=== PATIENT | female | born 1930 | race Caucasian/White ===

== ENCOUNTER 2016-07-13 13:20 | Outpatient (CLI) | payer MEDICARE ==
[2016-07-13 14:03] LABS: ALT (SGPT) 19 U/L (0-55); AST (SGOT) 18 U/L (5-34); Alkaline Phosphatase 58 U/L (40-150); Anion Gap 15 mmol/L (10-20); BUN (Urea Nitrogen) 10 mg/dL (9.8-20.1); Bilirubin, Direct 0.3 mg/dL (0.1-0.3); Bilirubin, Total 0.7 mg/dL (0.2-1.2); Calc. Creatinine Clearance 0 mL/min (70-130); Calcium 9.5 mg/dL (7.8-10.44); Carbon Dioxide 30 mmol/L (23-31); Chloride 97 mmol/L (98-107); Estimated GFR-MDRD 73; LDL Cholesterol, Calculated 75 mg/dL; Protein, Total 6.8 g/dL (5.8-8.1)
[2016-07-13 14:33] LABS: Hemoglobin A1c 5.9 % (4.0-6.0)
[2016-07-13 14:34] LABS: #Basophils 0.1 thou/uL (0.0-0.2); #Eosinphils 0.4 thou/uL (0.0-0.7); #Lymphocytes 1.8 thou/uL (1.20-3.40); #Monocytes 0.7 thou/uL (0.11-0.59); #Neutrophils 3.9 thou/uL (1.40-6.50); %Basophils 1.4 % (0.0-1.0); %Eosinophils 5.9 % (0.0-10.0); %Lymphocytes 26.3 % (21.0-51.0); %Monocytes 9.6 % (0.0-10.0); Hematocrit 37.1 % (36.0-47.0); Mean Platelet Volume 5.5 fL (7.4-10.4); Red Blood Cell (RBC) Count 4.44 mill/uL (4.20-5.40); White Blood Cell (WBC) Count 6.8 thou/uL (4.8-10.8)
== END 2016-07-13 13:21 | disposition home or self-care (01) ==
LOC: NAV LABSP 13:20
PROVIDERS: ATTEND Family Medicine
DX: E11.65 Type 2 diabetes mellitus with hyperglycemia (principal); I10 Essential (primary) hypertension; H49.00 Third [oculomotor] nerve palsy, unspecified eye; Z79.899 Other long term (current) drug therapy
CPT/HCPCS: 36415; 80048; 80061; 80076; 83036; 84443; 85025

== ENCOUNTER 2016-11-11 08:35 | Outpatient (CLI) | payer MEDICARE ==
[2016-11-11 12:55] LABS: #Basophils 0.1 thou/uL (0.0-0.2); #Eosinphils 0.3 thou/uL (0.0-0.7); #Lymphocytes 1.9 thou/uL (1.20-3.40); #Monocytes 0.7 thou/uL (0.11-0.59); #Neutrophils 3.4 thou/uL (1.40-6.50); %Basophils 1.3 % (0.0-1.0); %Eosinophils 4.2 % (0.0-10.0); %Lymphocytes 30.5 % (21.0-51.0); %Monocytes 10.8 % (0.0-10.0); %Neutrophils 53.2 % (42.0-75.0); Hemoglobin 12.1 g/dL (12.0-16.0); Mean Corpuscular HGB CONC 31.8 g/dL (32.0-36.0); Mean Corpuscular Hemoglobin 26.9 pg (27.0-31.0); Mean Corpuscular Volume 84.4 fl (81.0-99.0); Mean Platelet Volume 5.3 fL (7.4-10.4); Platelet Count 268 thou/uL (130-400); RBC Distribution Width 11.9 % (11.5-14.5); Red Blood Cell (RBC) Count 4.49 mill/uL (4.20-5.40); White Blood Cell (WBC) Count 6.3 thou/uL (4.8-10.8)
[2016-11-11 13:14] LABS: ALT (SGPT) 15 U/L (8-55); AST (SGOT) 18 U/L (5-34); Albumin 4.2 g/dL (3.4-4.8); Alkaline Phosphatase 56 U/L (40-150); Anion Gap 16 mmol/L (10-20); BUN (Urea Nitrogen) 14 mg/dL (9.8-20.1); Bilirubin, Direct 0.3 mg/dL (0.1-0.3); Bilirubin, Total 0.9 mg/dL (0.2-1.2); Calc. Creatinine Clearance 0 mL/min (70-130); Calcium 9.4 mg/dL (7.8-10.44); Carbon Dioxide 26 mmol/L (23-31); Cardiac Risk 3.3 (Less than 4.5); Chloride 99 mmol/L (98-107); Cholesterol 149 mg/dl (< 200 Desired); Estimated GFR-MDRD 76; Glucose 126 mg/dL (83-110); HDL Cholesterol 45 mg/dL (>60 Neg Risk); LDL Cholesterol, Calculated 80 mg/dL; Sodium 137 mmol/L (136-145); Triglycerides 121 mg/dL (Less than 150)
[2016-11-11 13:22] LABS: Hemoglobin A1c 6.1 % (4.0-6.0)
== END 2016-11-11 08:36 | disposition home or self-care (01) ==
LOC: NAVSJIPCSP 08:35
PROVIDERS: ATTEND Family Medicine
DX: E11.65 Type 2 diabetes mellitus with hyperglycemia (principal); E78.5 Hyperlipidemia, unspecified; I10 Essential (primary) hypertension; Z79.899 Other long term (current) drug therapy
CPT/HCPCS: 36415; 80048; 80061; 80076; 83036; 83880; 84443; 85025

== ENCOUNTER 2017-05-15 10:24 | Emergency (ER) | payer MEDICARE ==
[2017-05-15] MEDS ORDERED: Sodium Chloride 0.9% 1,000 ML ONE (10:48)
[2017-05-15 10:56] LABS: #Basophils 0.1 thou/uL (0.0-0.2); #Lymphocytes 1.9 thou/uL (1.20-3.40); #Monocytes 0.7 thou/uL (0.11-0.59); #Neutrophils 5.9 thou/uL (1.40-6.50); %Basophils 0.9 % (0.0-1.0); %Eosinophils 0.4 % (0.0-10.0); %Lymphocytes 21.7 % (21.0-51.0); Hemoglobin 12.4 g/dL (12.0-16.0); Mean Corpuscular HGB CONC 32.6 g/dL (32.0-36.0); Mean Corpuscular Volume 82.9 fl (81.0-99.0); Mean Platelet Volume 6.6 fL (7.4-10.4); Platelet Count 288 thou/uL (130-400); RBC Distribution Width 11.8 % (11.5-14.5); Red Blood Cell (RBC) Count 4.61 mill/uL (4.20-5.40); White Blood Cell (WBC) Count 8.6 thou/uL (4.8-10.8)
[2017-05-15] MEDS ORDERED: Diltiazem 125 MG/25 ML ONE ×2 (11:00→11:06)
[2017-05-15] MEDS ORDERED: Sodium Chloride 0.9% 100 ML ONE ×3 (11:01→11:06)
[2017-05-15 11:10] LABS: Prothrombin Time 13.4 SEC (12.0-14.7)
[2017-05-15 11:11] LABS: PTT 29.3 SEC (22.9-36.1)
[2017-05-15 11:17] LABS: Digoxin 0.54 ng/mL (0.8-2.0)
[2017-05-15 11:20] LABS: ALT (SGPT) 10 U/L (8-55); AST (SGOT) 22 U/L (5-34); Alkaline Phosphatase 62 U/L (40-150); Anion Gap 15 mmol/L (10-20); BUN (Urea Nitrogen) 17 mg/dL (9.8-20.1); Bilirubin, Total 0.7 mg/dL (0.2-1.2); Calc. Creatinine Clearance 0 mL/min (70-130); Calcium 9.5 mg/dL (7.8-10.44); Carbon Dioxide 27 mmol/L (23-31); Chloride 99 mmol/L (98-107); Estimated GFR-MDRD 73; Globulin 3.2 g/dL (2.4-3.5); Glucose 217 mg/dL (83-110); Potassium 3.3 mmol/L (3.5-5.1); Protein, Total 7.2 g/dL (6.0-8.3); Sodium 138 mmol/L (136-145)
[2017-05-15 11:21] LABS: CKMB 2.5 ng/mL (0-6.6); Troponin I 0.015 ng/mL (< 0.028)
[2017-05-15] MEDS ORDERED: Potassium Chloride 20 MEQ TAB ONE (11:45)
[2017-05-15] MEDS ORDERED: Digoxin 0.5 MG/2 ML AMP ONE (11:47)
--- NOTE | 2017-05-15 13:04 | RAD ---
CHEST 1 VIEW: Date: 05/15/17 HISTORY: Weakness, heart racing, chest pain. COMPARISON: Chest radiograph from 2016. FINDINGS: Lungs are slightly hyperinflated. There is a well-defined nodule right lung apex, as well as in the l eft upper lobe, likely calcified granulomas. No focal air space consolidation, pneumothorax, or effus ion. Cardiac silhouette and mediastinal contours are similar. Moderate vascular calcifications. IMPRESSION: No acute intrathoracic abnormality. POS: [facility]
== END 2017-05-15 12:40 | disposition short-term general hospital (02) ==
LOC: NAV ERS 10:24
DX: I48.91 Unspecified atrial fibrillation (principal); E11.9 Type 2 diabetes mellitus without complications; E87.6 Hypokalemia; I10 Essential (primary) hypertension; G20 Parkinson's disease; F03.90 Unspecified dementia, unspecified severity, without behavioral disturbance, psychotic disturbance, mood disturbance, and anxiety; Z79.84 Long term (current) use of oral hypoglycemic drugs; Z79.899 Other long term (current) drug therapy
CPT/HCPCS: 71010; 80053; 80162; 82553; 83880; 84484; 85025; 85610; 85730; 93005; 96361; 96374; 96375; 96376; J1160; J7050

== ENCOUNTER 2018-04-11 10:10 | Outpatient (CLI) | payer MEDICARE ==
--- NOTE | 2018-04-11 12:02 | RAD ---
LUMBAR SPINE THREE VIEWS: History: 87-year-old female with low back pain. FINDINGS: There are generalized disc desiccation changes and disc space narrowing, particularly at L4-5 and L5- S1. There appears to be some mild central vertical height loss of L3, age indeterminate. There is telma e heterogeneous bony demineralization. Bilateral renal calculi. IMPRESSION: Bone demineralization with disc osteophytosis and facet arthrosis. Mild vertical height loss of the c entral aspect of L3, age indeterminate. Bilateral nonobstructing renal calculi. POS: [facility]
== END 2018-04-11 10:11 | disposition home or self-care (01) ==
LOC: NAV RAD 10:10
PROVIDERS: ATTEND Nurse Practitioner Adult Health
DX: M54.5 Low back pain (principal); M25.78 Osteophyte, vertebrae; M46.96 Unspecified inflammatory spondylopathy, lumbar region; N20.0 Calculus of kidney
CPT/HCPCS: 72100

== ENCOUNTER 2018-08-23 22:09 | Emergency (ER) | payer MEDICARE ==
[2018-08-23 22:47] LABS: #Basophils 0.1 thou/uL (0.0-0.2); #Eosinphils 0.2 thou/uL (0.0-0.7); #Lymphocytes 1.9 thou/uL (1.20-3.40); #Monocytes 0.9 thou/uL (0.11-0.59); #Neutrophils 5.6 thou/uL (1.40-6.50); %Basophils 1.4 % (0.0-1.0); %Eosinophils 2.8 % (0.0-10.0); %Lymphocytes 21.5 % (21.0-51.0); %Monocytes 10.1 % (0.0-10.0); %Neutrophils 64.2 % (42.0-75.0); Anisocytosis MODERATE=16-30 cells (100X) (0-5/hpf); Hemoglobin 11.4 g/dL (12.0-16.0); MDiff Complete? YES; Mean Corpuscular HGB CONC 30.4 g/dL (32.0-36.0); Mean Corpuscular Hemoglobin 24.8 pg (27.0-31.0); Mean Corpuscular Volume 81.6 fL (78.0-98.0); Mean Platelet Volume 5.8 fL (7.4-10.4); Ovalocytes SLIGHT = 2-5 cells (100X) (0-1/hpf); Platelet Count 297 thou/uL (130-400); Platelet Morphology Comment Appears Adequate; Poikilocytosis SLIGHT = 6-15 cells (100X) (0-5/hpf); RBC Distribution Width 12.4 % (11.5-14.5); Red Blood Cell (RBC) Count 4.59 mill/uL (4.20-5.40); Tear Drops SLIGHT = 2-5 cells (100X) (0-1/hpf); White Blood Cell (WBC) Count 8.6 thou/uL (4.8-10.8)
[2018-08-23 22:51] LABS: Bilirubin Negative (Negative); Blood, Urine Negative (Negative); Clarity Clear (Clear); Glucose, Urine (Dipstick) 500 mg/dL (Negative); Leukocyte Negative (Negative); Nitrite Positive (Negative); Protein, Urine (Dipstick) Trace mg/dL (Neg-Trace); Specific Gravity, Urine 1.015 (1.005-1.030); Urobilinogen 0.2 mg/dL (0.2-1.0)
[2018-08-23 22:53] LABS: Bacteria/HPF 3+ HPF (None Seen); RBC/HPF None Seen HPF (0-3)
[2018-08-23 22:57] LABS: ALT (SGPT) 13 U/L (8-55); AST (SGOT) 27 U/L (5-34); Albumin 4.5 g/dL (3.4-4.8); Alkaline Phosphatase 87 U/L (40-150); Anion Gap 16 mmol/L (10-20); BUN (Urea Nitrogen) 16 mg/dL (9.8-20.1); Bilirubin, Total 0.4 mg/dL (0.2-1.2); Calc. Creatinine Clearance 0 mL/min (70-130); Calcium 10.4 mg/dL (7.8-10.44); Carbon Dioxide 27 mmol/L (23-31); Chloride 96 mmol/L (98-107); Digoxin 0.46 ng/mL (0.8-2.0); Estimated GFR-MDRD 62; Globulin 3.2 g/dL (2.4-3.5); Glucose 320 mg/dL (83-110); Potassium 3.7 mmol/L (3.5-5.1); Protein, Total 7.7 g/dL (6.0-8.3); Sodium 135 mmol/L (136-145)
[2018-08-23] MEDS ORDERED: Sodium Chloride 0.9% 100 ML ONE (23:12)
[2018-08-23] MEDS ORDERED: Piperacillin/Tazobactam 4.5 GM VIAL ONE (23:12)
[2018-08-23] MEDS ORDERED: Aspirin Chewable 81 MG TAB ONE (23:12)
--- NOTE | 2018-08-23 23:46 | CT ---
FEXAM: CT brain without contrast PROVIDED CLINICAL HISTORY: Weakness COMPARISON: 07/08/2015 FINDINGS: The ventricular system is unchanged in size and morphology. Chronic microvascular ischemic changes ar e again noted involving the cerebral white matter. There is no evidence for intracranial hemorrhage o r mass effect. Stable opacification of the right maxillary sinus. The extracranial soft tissues and o sseous structures demonstrate no acute abnormality. IMPRESSION: No evidence for intracranial hemorrhage or mass effect.
== END 2018-08-24 00:11 | disposition short-term general hospital (02) ==
LOC: NAV ERS 22:09
DX: R65.10 Systemic inflammatory response syndrome (SIRS) of non-infectious origin without acute organ dysfunction (principal); N39.0 Urinary tract infection, site not specified; R94.31 Abnormal electrocardiogram [ECG] [EKG]; R53.1 Weakness; E11.9 Type 2 diabetes mellitus without complications; I10 Essential (primary) hypertension; G20 Parkinson's disease; F03.90 Unspecified dementia, unspecified severity, without behavioral disturbance, psychotic disturbance, mood disturbance, and anxiety; Z79.899 Other long term (current) drug therapy; Z79.84 Long term (current) use of oral hypoglycemic drugs
CPT/HCPCS: 36416; 51701; 70450; 80053; 80162; 81003; 81015; 83605; 84484; 85025; 87077; 87086; 87186; 93005; 96361; 96365; 36415-59; A4353; J2543; J7050

== ENCOUNTER 2018-09-06 12:34 | Emergency (ER) | payer MEDICARE ==
[2018-09-06 13:16] LABS: Bilirubin Negative (Negative); Blood, Urine Trace (Negative); Glucose, Urine (Dipstick) 100 mg/dL (Negative); Leukocyte Trace (Negative); Nitrite Negative (Negative); Protein, Urine (Dipstick) 30 mg/dL (Neg-Trace); Specific Gravity, Urine 1.015 (1.005-1.030); Urobilinogen 0.2 mg/dL (0.2-1.0); pH, Urine 7.5 (5.0-9.0)
[2018-09-06 13:17] LABS: Clarity Hazy (Clear)
[2018-09-06 13:31] LABS: Squamous Epithelial 0-3 HPF (0-3); WBC/HPF 0-3 HPF (0-3)
[2018-09-06 13:37] LABS: #Basophils 0.1 thou/uL (0.0-0.2); #Eosinphils 0.1 thou/uL (0.0-0.7); #Lymphocytes 1.5 thou/uL (1.20-3.40); #Monocytes 0.6 thou/uL (0.11-0.59); %Basophils 1.3 % (0.0-1.0); %Eosinophils 1.6 % (0.0-10.0); %Lymphocytes 20.1 % (21.0-51.0); %Monocytes 8.7 % (0.0-10.0); %Neutrophils 68.3 % (42.0-75.0); Hemoglobin 11.2 g/dL (12.0-16.0); Mean Corpuscular HGB CONC 30.7 g/dL (32.0-36.0); Mean Corpuscular Hemoglobin 24.7 pg (27.0-31.0); Mean Corpuscular Volume 80.5 fL (78.0-98.0); Mean Platelet Volume 5.8 fL (7.4-10.4); Platelet Count 342 thou/uL (130-400); RBC Distribution Width 12.1 % (11.5-14.5); Red Blood Cell (RBC) Count 4.56 mill/uL (4.20-5.40); White Blood Cell (WBC) Count 7.2 thou/uL (4.8-10.8)
[2018-09-06] MEDS ORDERED: Sodium Chloride 0.9% 500 ML ONE (13:42)
[2018-09-06 13:45] LABS: ALT (SGPT) 14 U/L (8-55); AST (SGOT) 20 U/L (5-34); Albumin 4.2 g/dL (3.4-4.8); Alkaline Phosphatase 106 U/L (40-150); Anion Gap 15 mmol/L (10-20); BUN (Urea Nitrogen) 10 mg/dL (9.8-20.1); Bilirubin, Total 0.7 mg/dL (0.2-1.2); Calc. Creatinine Clearance 0 mL/min (70-130); Calcium 10.1 mg/dL (7.8-10.44); Carbon Dioxide 27 mmol/L (23-31); Chloride 99 mmol/L (98-107); Estimated GFR-MDRD 78; Globulin 3.3 g/dL (2.4-3.5); Glucose 227 mg/dL (83-110); Potassium 3.5 mmol/L (3.5-5.1); Protein, Total 7.5 g/dL (6.0-8.3); Sodium 137 mmol/L (136-145)
--- NOTE | 2018-09-06 14:07 | CT ---
CT Brain WO Con HISTORY: CT BRAIN WITHOUT CONTRAST: HISTORY:Weakness COMPARISON:08/23/2018 FINDINGS: The ventricular system is unchanged in size and morphology. Chronic microvascular ischemic changes ar e again noted involving the cerebral white matter. There is no evidence for intracranial hemorrhage or mass effect. Stable opacification of the right maxillary sinus. The extracranial soft tissues and osseous structures demonstrate no acute abnormality. IMPRESSION: No CT evidence of acute intracranial process.
--- NOTE | 2018-09-06 14:10 | RAD ---
PORTABLE CHEST: Date: 09/06/18 HISTORY: Weakness. UTI. COMPARISON: 05/15/17. FINDINGS: Heart size within normal limits. There are atherosclerotic changes of the aorta. The lungs are clear of infiltrates. Bones are demineralized. IMPRESSION: No active intrathoracic disease. POS: [facility]
[2018-09-06 14:32] LABS: Bacteria/HPF 4+ HPF (None Seen)
== END 2018-09-06 14:50 | disposition home or self-care (01) ==
LOC: NAV ERS 12:34
DX: E86.0 Dehydration (principal); R53.81 Other malaise; I10 Essential (primary) hypertension; E11.9 Type 2 diabetes mellitus without complications; G20 Parkinson's disease; F03.90 Unspecified dementia, unspecified severity, without behavioral disturbance, psychotic disturbance, mood disturbance, and anxiety; Z79.899 Other long term (current) drug therapy; Z79.82 Long term (current) use of aspirin; Z79.84 Long term (current) use of oral hypoglycemic drugs
CPT/HCPCS: 51701; 70450; 71045; 80053; 81003; 81015; 83605; 85025; 87077; 87086; 87186; 93005; 96360; A4353; J7050

== ENCOUNTER 2019-02-13 11:15 | Inpatient (IN) | payer MEDICARE, MEDICAID ==
[~2019-02-13 11:15] MED LIST: Iopamidol 370 76% 100 ML VIAL ONE
[2019-02-13 11:58] LABS: #Lymphocytes 0.9 thou/uL (1.20-3.40); #Monocytes 0.9 thou/uL (0.11-0.59); #Neutrophils 7.9 thou/uL (1.40-6.50); %Basophils 0.3 % (0.0-1.0); %Eosinophils 0.1 % (0.0-10.0); %Lymphocytes 9.5 % (21.0-51.0); %Monocytes 9.6 % (0.0-10.0); %Neutrophils 80.5 % (42.0-75.0); Mean Corpuscular HGB CONC 32.8 g/dL (32.0-36.0); Mean Corpuscular Hemoglobin 25.1 pg (27.0-31.0); Mean Corpuscular Volume 76.5 fL (78.0-98.0); Mean Platelet Volume 6.1 fL (7.4-10.4); Platelet Count 241 thou/uL (130-400); RBC Distribution Width 12.1 % (11.5-14.5); Red Blood Cell (RBC) Count 4.39 mill/uL (4.20-5.40); White Blood Cell (WBC) Count 9.9 thou/uL (4.8-10.8)
--- NOTE | 2019-02-13 12:06 | RAD ---
EXAM: Single view of the chest HISTORY: Fever COMPARISON: 09/06/2018 FINDINGS: Single view of the chest shows a normal sized cardiomediastinal silhouette. There is no pablo dence of consolidation, mass, or pleural effusion. The bones are unremarkable. IMPRESSION: No evidence of acute cardiopulmonary disease
[2019-02-13 12:10] LABS: Bilirubin Negative (Negative); Blood, Urine Negative (Negative); Clarity Cloudy (Clear); Glucose, Urine (Dipstick) Negative (Negative); Leukocyte Negative (Negative); Nitrite Positive (Negative); Protein, Urine (Dipstick) Trace mg/dL (Neg-Trace)
[2019-02-13 12:19] LABS: ALT (SGPT) 6 U/L (8-55); AST (SGOT) 17 U/L (5-34); Albumin 3.7 g/dL (3.4-4.8); Alkaline Phosphatase 61 U/L (40-150); Anion Gap 18 mmol/L (10-20); BUN (Urea Nitrogen) 14 mg/dL (9.8-20.1); Bilirubin, Total 0.9 mg/dL (0.2-1.2); Calc. Creatinine Clearance 0 mL/min (70-130); Calcium 9.3 mg/dL (7.8-10.44); Carbon Dioxide 24 mmol/L (23-31); Chloride 93 mmol/L (98-107); Estimated GFR-MDRD 69; Globulin 2.9 g/dL (2.4-3.5); Glucose 264 mg/dL (83-110); Potassium 3.5 mmol/L (3.5-5.1); Protein, Total 6.6 g/dL (6.0-8.3); Sodium 131 mmol/L (136-145)
[2019-02-13] MEDS ORDERED: Sodium Chloride 0.9% 2,000 ML ONE (12:20)
[2019-02-13 12:26] LABS: Bacteria/HPF 4+ HPF (None Seen); RBC/HPF None Seen HPF (0-3); Squamous Epithelial None Seen HPF (0-3); WBC/HPF None Seen HPF (0-3)
[2019-02-13] MEDS ORDERED: Piperacillin/Tazobactam 3.375 GM VIAL ONE (12:26)
[2019-02-13] MEDS ORDERED: Sodium Chloride 0.9% 100 ML ONE (12:26)
--- NOTE | 2019-02-13 13:22 | CT ---
CT Abdomen Pelvis W Con: 02/13/2019 12:23 PM CLINICAL INFORMATION: Abdominal pain in the left lower quadrant COMPARISON: None. TECHNIQUE: Multiple contiguous axial images were obtained and a CT of the abdomen and pelvis with IV contrast. C oronal and sagittal reformats were performed. FINDINGS: Lower Chest: Airspace opacity is seen in the right lower lobe which may represent an infiltrate or at electasis. Abdomen: Liver: within normal limits. Bile Ducts: Normal caliber. Gallbladder: No calcified gallstones. Normal caliber wall. Pancreas: within normal limits. Spleen: within normal limits. Adrenals: within normal limits. Kidneys: Nonobstructing bilateral kidney stones measuring up to 3 mm in size. Pelvis: Reproductive Organs: There is a soft tissue density mass in the pelvis. This extends both to the righ t and left of midline but extends down to the region of the cervix. There are calcifications associated with the mass to the left of midline. This mass measures at least 11.8 cm in greatest dime nsion. This mass is intimately associated with bowel loops in the pelvis. Ureters: within normal limits. Bladder: within normal limits. Peritoneum: No ascites or free air, no fluid collection. Bowel: Normal caliber. Mesentery and Retroperitoneum: No enlarged mesenteric or retroperitoneal lymph nodes. Vessels: Atherosclerotic calcifications. Abdominal Wall: within normal limits. Bones: Degenerative changes in the spine. IMPRESSION: 1. Pelvic mass. This could represent an enlarged uterine didelphys containing fibroids. Alternatively , this could represent a mass emanating from a normal uterus or a mass adjacent to the uterus. Evaluation without oral contrast is difficult. An MRI of the pelvis with and without contrast is hipolito mmended. 2. Right lower lobe atelectasis versus infiltrate
[2019-02-13] MEDS ORDERED: Acetaminophen 325 MG TAB ONE (14:03)
[2019-02-13 14:42] VITALS: BMI 19.8
[2019-02-13] MEDS ORDERED: Sodium Chloride 0.9% 1,000 ML IV SCH (14:55)
[2019-02-13] MEDS ORDERED: Acetaminophen 325 MG TAB PO PRN (14:55)
[2019-02-13] MEDS ORDERED: Ondansetron PF 4 MG/2 ML Vial IVP PRN (14:55)
[2019-02-13] MEDS ORDERED: Ondansetron ODT 4 MG TAB SL PRN (14:55)
[2019-02-13 15:48] LABS: Lactic Acid 1.4 mmol/L (0.5-2.2)
[2019-02-13 15:56] LABS: Anion Gap 13 mmol/L (10-20); BUN (Urea Nitrogen) 12 mg/dL (9.8-20.1); Calc. Creatinine Clearance 60 mL/min (70-130); Calcium 8.2 mg/dL (7.8-10.44); Carbon Dioxide 24 mmol/L (23-31); Chloride 99 mmol/L (98-107); Estimated GFR-MDRD 89; Glucose 176 mg/dL (83-110); Potassium 3.2 mmol/L (3.5-5.1); Sodium 133 mmol/L (136-145)
[2019-02-13] MEDS ORDERED: Dextrose 5% in Water 1,000 ML IV PRN ×2 (16:36→18:19)
[2019-02-13] MEDS ORDERED: HumaLOG 300 UNITS/3 ML VIAL SC PRN ×2 (16:36→18:19)
[2019-02-13] MEDS ORDERED: Dextrose 50% Abboject 50 ML SYRINGE IVP PRN (16:36)
[2019-02-13] MEDS ORDERED: Ondansetron ODT 4 MG TAB PO PRN (18:14)
[2019-02-13] MEDS ORDERED: Naproxen 500 MG TAB PO PRN (18:18)
[2019-02-13] MEDS ORDERED: Non-Formulary Item 1 EACH (Acetaminophen [Tylenol] 650 MG) PO PRN (18:18)
[2019-02-13] MEDS ORDERED: guaiFENesin 100 MG/5 ML UDCUP PO PRN (18:18)
[2019-02-13] MEDS ORDERED: Dextrose 50% Abboject 50 ML SYRINGE SLOW IVP PRN (18:19)
[2019-02-13] MEDS ORDERED: Milk Of Magnesia 30 ML UDCUP PO PRN (18:52)
[2019-02-13] MEDS ORDERED: Non-Formulary Item 1 EACH (Bimatoprost [Lumigan] 1 DROP) OP SCH (21:00)
[2019-02-13] MEDS: Famotidine 20 MG TAB PO SCH (21:14)
[2019-02-13] MEDS: Carvedilol 6.25 MG TAB PO SCH (21:15)
[2019-02-13] MEDS: Melatonin 3 MG TAB PO SCH (21:15)
[2019-02-13] MEDS: Donepezil HCl 10 MG TAB PO SCH (21:15)
[2019-02-13] MEDS: Carbidopa/Levodopa CR 50-200 mg Tablet PO SCH (21:15)
[2019-02-13] MEDS: Latanoprost 0.005% Ophth Soln 2.5 ml Bottle EA EYE SCH (21:15)
[2019-02-13] MEDS: Amitriptyline HCl 25 MG TAB PO SCH (21:15)
--- NOTE | 2019-02-14 02:17 | HP ---
CHIEF COMPLAINT: Weakness, altered mental status. 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 She has done fairly well over there, increasing strength and minimal falls, and no fractures. However, she does have a history of recurrent urinary tract infection showing sepsis with most recent admission in August 2018. She presents at this time with new onset of altered mental status and was seen in the emergency room and was found to have urinary tract infection with pyuria and bacteria, although no leukocytosis. She was, however, found to have elevated lactate at 3.1, and was started on fluid resuscitation with normal saline. She never did have hypotension. She did have a chest x-ray, which showed only atelectasis, mild cardiomegaly, no pulmonary congestion. She does have a history of atrial fibrillation and has been on treatment with carvedilol 6.25 twice daily, amlodipine 10 mg daily, digoxin 0.125 mg daily, hydrochlorothiazide 25 daily, lisinopril 20 daily, and carvedilol 6.25 twice daily. She also has a history of type 2 diabetes, controlled with metformin 500 mg 3 times daily and glimepiride 4 mg daily. She was found to have no evidence of hypo or hyperglycemia. She did not have a significant leukocytosis. She had minimal nausea and vomiting. She did, however, have a new finding of a large pelvic mass, most likely ureter or ovarian in origin with no symptoms of tenderness, abdominal pain, or change in bowel movement. Family is given this information and felt to only give her comfort care with IV fluids and antibiotics and no other treatment. She did develop somewhat cough after 1500 mL of saline, but denied any shortness of breath. PAST MEDICAL HISTORY: Positive for the above-mentioned diabetes, Parkinson disease, Lewy body dementia, hypertension, atrial fibrillation. PAST SURGICAL HISTORY: Negative. SOCIAL HISTORY: She lives at [facility]. She is a nonsmoker, nondrinker. REVIEW OF SYSTEMS: Essentially obtained from the daughter, who states that she has been more weakened and confused, but denies any nausea, vomiting, fever, chills, or abdominal pain. The patient has not complained of dysuria. The family has noticed some cough since she was in the emergency room. PHYSICAL EXAMINATION: VITAL SIGNS: On presentation to the emergency room showed temperature of 100.8, pulse 81, blood pressure 141/55, O2 saturations 95% on room air. HEENT: Showed pupils are equal, round, and reactive to light and accommodation. Sclerae anicteric. Conjunctivae pale. Oral mucous membranes well hydrated. NECK: Supple. There are no nodes or masses. JVP is not elevated. LUNGS: No rales, rhonchi, rubs, or wheezes. CARDIAC: Showed regular rhythm. No gallops or murmurs. ABDOMEN: Soft. It is tender minimally in the left lower quadrant. No masses or organomegaly. SKIN/EXTREMITIES: Show no edema, clubbing, or cyanosis. LABORATORY DATA: Shows white count of 9,900, hematocrit 33, hemoglobin 11, sodium is 133, potassium 3.2, chloride 99, bicarb 24, BUN 12, creatinine 0.6, glucose 176, lactic acid reached a level of 3.7. BNP is elevated slightly at 224. MEDICATIONS: At snf included; 1. Amitriptyline 25 mg at night. 2. Amlodipine 10 mg daily. 3. Ecotrin 81 daily. 4. Carbidopa/levodopa extended release 50/200 three times daily. 5. Coreg 6.25 twice daily. 6. Digoxin 0.125 mg daily. 7. Aricept 10 mg daily. 8. Famotidine 20 mg twice daily. 9. Amaryl 4 mg daily. 10. Hydrochlorothiazide 25 mg daily. 11. Lisinopril 20 mg daily. 12. Latanoprost eye drops nightly. 13. Melatonin 3 mg nightly. 14. Metformin 500 three times daily. ASSESSMENT: 1. An 88-year-old white female with a history of Lewy body dementia, who has become more altered and was found to have a recurrent urinary tract infection with sepsis with elevated lactate of 3.7. She has responded to IV fluids and Zosyn in the emergency room. Urine and blood cultures have been done and she will be treated with Rocephin 1 g IV daily and monitor closely. 2. The patient is not to be resuscitated. Family does not want more than standard care with no aggressive care or ICU admission and only IV antibiotics and fluids. 3. Atrial fibrillation with rate controlled with no anticoagulation. 4. Type 2 diabetes, controlled to goal. We will continue sliding scale. 5. Lewy body dementia causing her to be a fall risk and therefore, the family does not want her to be up and moving and wished her to stay in the bed. She hopefully will have oral antibiotic that she has responded to and we switched to oral antibiotics and transferred her back to snf setting. Job ID: [id number]
[2019-02-14 05:49] LABS: Band 16 % (5-11); Hypochromia SLIGHT = 6-15 cells (100X) (0-5/hpf); Lymphocytes 18 % (21-51); MDiff Complete? YES; Mean Corpuscular HGB CONC 32.3 g/dL (32.0-36.0); Mean Corpuscular Hemoglobin 24.9 pg (27.0-31.0); Mean Corpuscular Volume 77.2 fL (78.0-98.0); Mean Platelet Volume 6.7 fL (7.4-10.4); Metamyelocyte 1 % (0-0); Microcytosis MODERATE=15-30 cells (100X) (0-5/hpf); Monocytes 5 % (0-10); Neutrophil 60 % (42-75); Platelet Count 220 thou/uL (130-400); Platelet Morphology Comment Appears Adequate; Red Blood Cell (RBC) Count 3.99 mill/uL (4.20-5.40); White Blood Cell (WBC) Count 7.3 thou/uL (4.8-10.8)
[2019-02-14] MEDS ORDERED: cefTRIAXone\\ROCEPHIN 1 GM in Sodium Chloride 0.9% 100 ML IVPB SCH (08:30)
[2019-02-14] MEDS: Aspirin 81 mg Enteric Coated Tablet PO SCH (08:39)
[2019-02-14] MEDS: Digoxin 0.125 MG TAB PO SCH (08:39)
[2019-02-14] MEDS: Carvedilol 6.25 MG TAB PO SCH ×2 (08:39→20:38)
[2019-02-14] MEDS: Famotidine 20 MG TAB PO SCH ×2 (08:39→20:39)
[2019-02-14] MEDS: Amlodipine 5 MG TAB PO SCH (08:39)
[2019-02-14] MEDS: Lisinopril 20 MG TAB PO SCH (08:39)
[2019-02-14] MEDS: Carbidopa/Levodopa CR 50-200 mg Tablet PO SCH ×3 (08:39→20:39)
[2019-02-14] MEDS: Glimepiride 2 MG TAB PO SCH (08:39)
[2019-02-14] MEDS: Hydrochlorothiazide 25 MG TAB PO SCH (08:40)
[2019-02-14] MEDS: metFORMIN 500 MG TAB PO SCH ×3 (08:40→16:42)
--- NOTE | 2019-02-14 20:06 | PRG ---
DATE OF SERVICE: 02/14/2019 SUBJECTIVE: The patient feels well, sitting up, eating, visiting with family. Has had no fever, chills, cough, nausea, or vomiting. OBJECTIVE: VITAL SIGNS: Blood pressure is 143/65, temperature is 95.9, pulse 64, respirations 20, and O2 sats 91% on room air. LUNGS: Clear. CARDIAC: Showed regular rhythm. ABDOMEN: Soft and nontender. SKIN AND EXTREMITIES: Show no edema, clubbing, or cyanosis. LABORATORY DATA: Laboratory shows white count 7300, hematocrit 30, hemoglobin 10. Accu-Cheks did go to 56 today and the patient was on a sliding scale, but this has been discontinued. Urine culture has returned E. coli with sensitivities pending. ASSESSMENT: 1. Resolving Escherichia coli urinary tract infection and sepsis syndrome. 2. Stable Lewy body dementia. 3. Stable Parkinson disease. PLAN: Await results of urine culture and sensitivities and place on oral antibiotics tomorrow and hopefully discharge to skilled nursing soon. Job ID: [id number]
[2019-02-14] MEDS: Donepezil HCl 10 MG TAB PO SCH (20:39)
[2019-02-14] MEDS: Amitriptyline HCl 25 MG TAB PO SCH (20:39)
[2019-02-14] MEDS: Melatonin 3 MG TAB PO SCH (20:39)
[2019-02-14] MEDS: Latanoprost 0.005% Ophth Soln 2.5 ml Bottle EA EYE SCH (21:10)
[2019-02-15 05:47] LABS: Anion Gap 12 mmol/L (10-20); BUN (Urea Nitrogen) 10 mg/dL (9.8-20.1); Calc. Creatinine Clearance 69 mL/min (70-130); Calcium 9.1 mg/dL (7.8-10.44); Carbon Dioxide 30 mmol/L (23-31); Chloride 96 mmol/L (98-107); Estimated GFR-MDRD Greater than 90; Glucose 124 mg/dL (83-110); Sodium 135 mmol/L (136-145)
[2019-02-15 06:08] LABS: Potassium 2.8 mmol/L (3.5-5.1)
[2019-02-15] MEDS ORDERED: Potassium Chloride 10 MEQ in Premix Bag 1 BAG IVPB SCH (06:45)
[2019-02-15] MEDS ORDERED: Potassium Chloride 20 MEQ TAB PO SCH (06:45)
[2019-02-15] MEDS: Lisinopril 20 MG TAB PO SCH (08:26)
[2019-02-15] MEDS: Glimepiride 2 MG TAB PO SCH (08:27)
[2019-02-15] MEDS: metFORMIN 500 MG TAB PO SCH ×3 (08:27→17:25)
[2019-02-15] MEDS: Carvedilol 6.25 MG TAB PO SCH (08:27)
[2019-02-15] MEDS: Amlodipine 5 MG TAB PO SCH (08:27)
[2019-02-15] MEDS: Aspirin 81 mg Enteric Coated Tablet PO SCH (08:27)
[2019-02-15] MEDS: Famotidine 20 MG TAB PO SCH (08:27)
[2019-02-15] MEDS: Hydrochlorothiazide 25 MG TAB PO SCH (08:28)
[2019-02-15] MEDS: Digoxin 0.125 MG TAB PO SCH (08:28)
[2019-02-15] MEDS: Carbidopa/Levodopa CR 50-200 mg Tablet PO SCH ×2 (08:28→14:44)
[2019-02-15] MEDS ORDERED: AMOXicillin 500 MG CAP PO SCH (09:00)
[2019-02-15 09:40] LABS: #Eosinphils 0.1 thou/uL (0.0-0.7); #Lymphocytes 1.5 thou/uL (1.20-3.40); #Monocytes 0.6 thou/uL (0.11-0.59); #Neutrophils 3.9 thou/uL (1.40-6.50); %Basophils 0.7 % (0.0-1.0); %Eosinophils 1.5 % (0.0-10.0); %Lymphocytes 24.5 % (21.0-51.0); %Monocytes 10.3 % (0.0-10.0); %Neutrophils 63.1 % (42.0-75.0); Hemoglobin 10.5 g/dL (12.0-16.0); Mean Corpuscular Hemoglobin 24.7 pg (27.0-31.0); Mean Platelet Volume 6.2 fL (7.4-10.4); Platelet Count 256 thou/uL (130-400); RBC Distribution Width 12.1 % (11.5-14.5); Red Blood Cell (RBC) Count 4.26 mill/uL (4.20-5.40); White Blood Cell (WBC) Count 6.1 thou/uL (4.8-10.8)
[2019-02-15 09:41] LABS: Mean Corpuscular Volume 77.1 fL (78.0-98.0)
[2019-02-15] MEDS: AMOXicillin 250 MG CAP PO SCH ×2 (10:09→14:44)
[2019-02-15 12:35] VITALS: BP 154/75; TEMP 98.4
[2019-02-15 14:23] LABS: Anion Gap 14 mmol/L (10-20); BUN (Urea Nitrogen) 8 mg/dL (9.8-20.1); Calc. Creatinine Clearance 60 mL/min (70-130); Carbon Dioxide 27 mmol/L (23-31); Chloride 96 mmol/L (98-107); Estimated GFR-MDRD 89; Glucose 187 mg/dL (83-110); Potassium 3.4 mmol/L (3.5-5.1); Sodium 134 mmol/L (136-145)
--- NOTE | 2019-02-16 06:30 | PQF ---
[employer] Crystal Reports Winform ViewerPASKET COLT Cotton TREVON MCCABE MD [id number] CLINICAL DOCUMENTATION CLARIFICATION FORM: POST DISCHARGE Addendum to original discharge summary date: ____ Late entry note date: __ DATE: 02/16/2019 ATTN: TREVON MCCABE MD Please exercise your independent, professional judgment in responding to the clarification form. Clinical indicators are provided on the bottom of this form for your review Please check appropriate box(s) to clarify if the following diagnosis has been ruled in or ruled out: SEPSIS (CDI/Coding list diagnosis here) [ ] Ruled in diagnosis [ ] Continue to treat [ ] Resolved [ ] Ruled out diagnosis [ ] Cannot rule out diagnosis [ ] Other diagnosis [ ] Unable to determine In addition, please specify: Present on Admission (POA): [ ] Yes [ ] No [ ] Unable to determine For continuity of documentation, please document condition throughout progress notes and discharge summary. Thank You. CLINICAL INDICATORS - SIGNS / SYMPTOMS / LABS Weakness and AMS - Documented in H&P on 02/13 by TREVON MCCABE MD Sepsis - Documented in H&P on 02/13 by TREVON MCCABE MD RR 22 on 02/15 - Vital Signs BP 122/59 on 02/13 - Vital Signs Sepsis syndrome - Documented in PNs on 02/14 by TREVON MCCABE MD Elevated lactate of 3.7 - Documented in H&P on 02/13 by TREVON MCCABE MD E coli UTI - Documented in PNs on 02/14 by TREVON MCCABE MD RISK FACTORS UTI - Documented in H&P on 02/13 by TREVON MCCABE MD TREATMENTS IV fluid and Zosyn Urine culture done and treated Rocephin 1 g IV - Documented in H&P on 02/13 by TREVON MCCABE MD [employer] Winform Viewer (This form is maintained as a part of the permanent medical record) 2014 [email or web address]. All Rights Reserved [email or web address] [not [email or web address]] [email or web address]
== END 2019-02-15 19:45 | DRG 690 ==
LOC: NAV ERS 11:15 → NAV ACUTE 14:21
PROVIDERS: ADMIT Internal Medicine; ATTEND Internal Medicine
DX: N39.0 Urinary tract infection, site not specified (principal); I48.91 Unspecified atrial fibrillation; F02.80 Dementia in other diseases classified elsewhere, unspecified severity, without behavioral disturbance, psychotic disturbance, mood disturbance, and anxiety; I10 Essential (primary) hypertension; E11.9 Type 2 diabetes mellitus without complications; G31.83 Neurocognitive disorder with Lewy bodies; B96.20 Unspecified Escherichia coli [E. coli] as the cause of diseases classified elsewhere; Z79.84 Long term (current) use of oral hypoglycemic drugs; Z79.899 Other long term (current) drug therapy
CPT/HCPCS: 36415; 36416; 51701; 71045; 74177; 80048; 80053; 81003; 81015; 83605; 83880; 84484; 85025; 87040; 87077; 87086; 87186; 87804; 93005; 94760; 96361; 96365; A4353; J0696; J2543; J3480; J3490; J7050; Q9967

== ENCOUNTER 2019-07-20 17:56 | Emergency (ER) | payer MEDICARE, OTHER | END 2019-07-20 20:30 | LOC: NAV ERS 17:56 | DX: L89.310 Pressure ulcer of right buttock, unstageable (principal); I48.91 Unspecified atrial fibrillation; E11.9 Type 2 diabetes mellitus without complications; I10 Essential (primary) hypertension; F03.90 Unspecified dementia, unspecified severity, without behavioral disturbance, psychotic disturbance, mood disturbance, and anxiety; G20 Parkinson's disease; G47.00 Insomnia, unspecified; Z79.899 Other long term (current) drug therapy; Z79.82 Long term (current) use of aspirin; Z79.891 Long term (current) use of opiate analgesic; Z79.84 Long term (current) use of oral hypoglycemic drugs | CPT/HCPCS: 87070; 87077; 87186; 87205; 99283 ==